=== PATIENT | female | born 1985 | race Caucasian/White ===

== ENCOUNTER 2017-12-27 19:33 | Emergency (ER) | payer OTHER ==
[~2017-12-27] VITALS: Ht 157.5 cm; Wt 70.0 kg
[2017-12-27 21:40] LABS: APPEARANCE,URINE CLEAR (CLEAR); BILIRUBIN,URINE NEGATIVE (NEGATIVE); GLUCOSE, URINE (UA) NEGATIVE (NEGATIVE); KETONES,URINE NEGATIVE (NEGATIVE); LEUKOCYTE ESTERASE ,URINE NEGATIVE (NEGATIVE); NITRATE,URINE NEGATIVE (NEGATIVE); OCCULT BLOOD,URINE NEGATIVE (NEGATIVE); PH,URINE 6.5 (5.0-8.0); PROTEIN,URINE NEGATIVE (NEGATIVE); UROBILINOGEN,URINE 0.2 mg/dL (<=1.0)
[2017-12-27 21:41] LABS: HCG,QUAL RESULT NEGATIVE (NEGATIVE)
[2017-12-27 21:54] LABS: BACTERIA,URINE None Seen /HPF (None Seen); RBC,URINE None Seen /HPF (0-2); SQUAMOUS EPITHELIAL CELL,UR Rare /LPF (None Seen); WBC,URINE 0-2 /HPF (0-5)
[2017-12-27 21:59] LABS: INFLUENZA TYPE A NEGATIVE FOR TYPE A (NEGATIVE); INFLUENZA TYPE B NEGATIVE FOR TYPE B (NEGATIVE)
[2017-12-27] MEDS ORDERED: NAPROXEN 250 MG TABLET PO ONE (23:15)
[2017-12-27] MEDS ORDERED: ACETAMINOPHEN 325 MG TABLET PO ONE (23:15)
[2017-12-27] MEDS ORDERED: METHOCARBAMOL 500 MG TABLET PO ONE (23:15)
[2017-12-27 23:27] VITALS: BP 158/62
== END 2017-12-27 23:56 | disposition home or self-care (01) ==
LOC: EMS 19:36
DX: J40 Bronchitis, not specified as acute or chronic (principal); M79.1 Myalgia; Z88.5 Allergy status to narcotic agent
CPT/HCPCS: 71046; 87804; 99285

== ENCOUNTER 2018-07-07 12:05 | Emergency (ER) | payer OTHER ==
[~2018-07-07] VITALS: Ht 157.5 cm; Wt 68.2 kg
[2018-07-07] MEDS ORDERED: METHOCARBAMOL 500 MG TABLET PO ONE (13:15)
[2018-07-07] MEDS ORDERED: PredniSONE 20 MG TABLET PO ONE (13:15)
[2018-07-07] MEDS ORDERED: KETOROLAC TROMETHAMINE 60 MG/2 ML VIAL IM ONE (13:15)
[2018-07-07 13:45] VITALS: BP 107/60
== END 2018-07-07 13:56 | disposition home or self-care (01) ==
LOC: EMS 12:06
DX: S13.4XXA Sprain of ligaments of cervical spine, initial encounter (principal); S16.1XXA Strain of muscle, fascia and tendon at neck level, initial encounter; S46.811A Strain of other muscles, fascia and tendons at shoulder and upper arm level, right arm, initial encounter; X58.XXXA Exposure to other specified factors, initial encounter; Y93.89 Activity, other specified; Y92.89 Other specified places as the place of occurrence of the external cause; Y99.8 Other external cause status
CPT/HCPCS: 96372; 99283; J1885; J7512

== ENCOUNTER 2018-07-25 12:53 | Emergency (ER) | payer OTHER ==
[~2018-07-25] VITALS: Ht 154.9 cm; Wt 68.2 kg
[2018-07-25] MEDS ORDERED: GABA-318 PO (13:04)
[2018-07-25 13:57] VITALS: BP 115/78
[2018-07-25] MEDS ORDERED: KETOROLAC TROMETHAMINE 60 MG/2 ML VIAL IM ONE (14:00)
[2018-07-25] MEDS ORDERED: METHOCARBAMOL 500 MG TABLET PO ONE (14:00)
== END 2018-07-25 14:39 | disposition home or self-care (01) ==
LOC: EMS 12:55
DX: M54.12 Radiculopathy, cervical region (principal); M54.6 Pain in thoracic spine; M79.601 Pain in right arm; Z88.6 Allergy status to analgesic agent; Z79.899 Other long term (current) drug therapy
CPT/HCPCS: 96372; 99283; J1885

== ENCOUNTER 2018-12-21 02:48 | Emergency (ER) | payer OTHER ==
[~2018-12-21] VITALS: Ht 160 cm; Wt 70.0 kg
[~2018-12-21 02:48] MED LIST: GABA600T10 PO
[2018-12-21] MEDS ORDERED: BENZOCAINE 20%/MENTHOL 56 GM SPRAY CANISTER TP ONE (05:30)
[2018-12-21] MEDS ORDERED: HYDROCODONE/ACETAMINOPHEN 5-325 MG TABLET PO ONE (05:30)
[2018-12-21 05:39] VITALS: BP 122/68
== END 2018-12-21 05:48 | disposition home or self-care (01) ==
LOC: EMS 02:49
DX: S01.112A Laceration without foreign body of left eyelid and periocular area, initial encounter (principal); M50.20 Other cervical disc displacement, unspecified cervical region; Z88.5 Allergy status to narcotic agent; Y04.2XXA Assault by strike against or bumped into by another person, initial encounter; Y93.89 Activity, other specified; Y92.89 Other specified places as the place of occurrence of the external cause; Y99.0 Civilian activity done for income or pay
CPT/HCPCS: 12011; 70450; 70486; 72125

== ENCOUNTER 2020-07-09 00:22 | Emergency (ER) | payer OTHER ==
[~2020-07-09] VITALS: Ht 157.5 cm; Wt 71.8 kg
[2020-07-09] MEDS ORDERED: ESCI-8 PO (00:25)
[2020-07-09] MEDS ORDERED: SODIUM CHLORIDE 0.9% 1,800 ML IV ONE (00:26)
[2020-07-09] MEDS ORDERED: 0.9% SODIUM CHLORIDE 10 ML SYRINGE IVP PRN (00:30)
[2020-07-09] MEDS ORDERED: ACETAMINOPHEN 500 MG TABLET PO ONE (01:15)
[2020-07-09 01:22] LABS: BASOPHILS % (AUTO) 0.4 % (0.0-2.0); EOSINOPHILS % (AUTO) 0.4 % (1.0-6.0); HEMATOCRIT 39.8 % (36-46); HEMOGLOBIN 13.1 g/dL (12.0-16.0); LYMPHOCYTES # (AUTO) 0.7 K/uL (1.0-4.8); MEAN CORPUSCULAR HEMOGLOBIN 27.5 pg (26.0-34.0); MEAN CORPUSCULAR HGB CONC 32.9 G/dL (31.0-37.0); MEAN CORPUSCULAR VOLUME 83 fL (80-100); MONOCYTES # (AUTO) 0.8 K/uL (0.1-1.0); MONOCYTES % (AUTO) 4.8 % (2.0-9.0); NEUTROPHILS # (AUTO) 15.4 K/uL (1.8-7.7); PLATELET COUNT (AUTO) 207 K/uL (150-450); RED BLOOD CELL COUNT(AUTO) 4.78 MIL/uL (4.00-5.20); RED CELL DISTRIBUTION WIDTH 14.4 % (11.5-14.5)
[2020-07-09 01:26] LABS: COVID AG,FIA SOURCE NASOPHARYNGEAL
[2020-07-09 01:27] LABS: ANION GAP 10 mmol/L (8-16); CALCIUM, TOTAL 8.9 mg/dL (8.8-10.5); CARBON DIOXIDE 24 mmol/L (22-29); CHLORIDE 101 mmol/L (98-107); CREATININE 1.18 mg/dL (0.60-1.30); GLOMERULAR FILTR. RATE CALC 52 mL/min (>60); GLUCOSE,RANDOM 103 mg/dL (70-110); POTASSIUM 3.9 mmol/L (3.5-5.1); SODIUM SERUM 135 mmol/L (136-145); UREA NITROGEN, BLOOD 24 mg/dL (7-18)
[2020-07-09 01:31] LABS: NEUTROPHILS % (AUTO) 90.4 % (40.0-70.0)
[2020-07-09 01:33] LABS: D-DIMER 0.47 mg/L FEU (0.00-0.50)
[2020-07-09 01:39] LABS: LACTIC ACID 0.7 mmol/L (0.4-2.0)
[2020-07-09 01:44] LABS: PROTHROMBIN TIME 10.3 SEC (9.4-11.6)
[2020-07-09 01:48] LABS: B-TYPE NATRIURETIC PEPTIDE 40 pg/mL (0-100)
[2020-07-09 01:49] LABS: INFLUENZA TYPE A NEGATIVE FOR TYPE A (NEGATIVE); INFLUENZA TYPE B NEGATIVE FOR TYPE B (NEGATIVE)
[2020-07-09 01:51] LABS: ALANINE AMINOTRANSFERASE 16 U/L (12-78); ALKALINE PHOSPHATASE 55 U/L (46-116); ASPARTATE AMINOTRANSFERASE 11 U/L (15-37); BILIRUBIN,TOTAL 0.9 mg/dL (0.1-1.0); CREATINE KINASE, TOTAL ONLY 78 U/L (26-192); HCG,QUANTITATIVE 1 mIU/mL (0-6); TOTAL PROTEIN, SERUM 6.7 g/dL (6.4-8.2)
[2020-07-09 02:09] LABS: APPEARANCE,URINE CLEAR (CLEAR); BILIRUBIN,URINE NEGATIVE (NEGATIVE); GLUCOSE, URINE (UA) NEGATIVE (NEGATIVE); KETONES,URINE >=80 mg/dL (NEGATIVE); LEUKOCYTE ESTERASE ,URINE NEGATIVE (NEGATIVE); NITRATE,URINE NEGATIVE (NEGATIVE); OCCULT BLOOD,URINE NEGATIVE (NEGATIVE); PROTEIN,URINE NEGATIVE (NEGATIVE); UROBILINOGEN,URINE 0.2 mg/dL (<=1.0)
[2020-07-09 02:40] VITALS: BP 108/68
== END 2020-07-09 02:40 | disposition home or self-care (01) ==
LOC: EMS 00:22
DX: B34.9 Viral infection, unspecified (principal); J02.9 Acute pharyngitis, unspecified; R06.02 Shortness of breath; Z20.828 Contact with and (suspected) exposure to other viral communicable diseases; Z88.5 Allergy status to narcotic agent
CPT/HCPCS: 36415; 71045; 80053; 81003; 82550; 83605; 83880; 84145; 84484; 84702; 85025; 85379; 85610; 87040; 87426; 87430; 87804; 93005; 99285; J7030; U0003

== ENCOUNTER 2020-07-10 00:14 | Emergency (ER) | payer OTHER ==
[~2020-07-10] VITALS: Ht 157.5 cm; Wt 66.8 kg
[~2020-07-10 00:14] MED LIST changes: +ESCI-8 PO; -GABA600T10 PO
[2020-07-10] MEDS ORDERED: LIDOCAINE 2% VISCOUS 15 ML SOLUTION UDCUP PO ONE (00:30)
[2020-07-10] MEDS ORDERED: ONDANSETRON HCL 4 MG/2 ML VIAL IVP ONE ×2 (00:30→04:15)
[2020-07-10] MEDS ORDERED: KETOROLAC TROMETHAMINE 30 MG/ML VIAL IVP ONE (00:30)
[2020-07-10] MEDS ORDERED: CefTRIAXone 1 GM/DEXTROSE 50 ML IV ONE (00:45)
[2020-07-10 01:00] LABS: BASOPHILS % (AUTO) 0.5 % (0.0-2.0); EOSINOPHILS % (AUTO) 0.7 % (1.0-6.0); HEMATOCRIT 40.5 % (36-46); HEMOGLOBIN 13.4 g/dL (12.0-16.0); LYMPHOCYTES # (AUTO) 1.8 K/uL (1.0-4.8); LYMPHOCYTES % (AUTO) 9.7 % (22.0-44.0); MEAN CORPUSCULAR HEMOGLOBIN 28.1 pg (26.0-34.0); MEAN CORPUSCULAR HGB CONC 33.1 G/dL (31.0-37.0); MEAN CORPUSCULAR VOLUME 85 fL (80-100); MONOCYTES # (AUTO) 1.3 K/uL (0.1-1.0); MONOCYTES % (AUTO) 6.9 % (2.0-9.0); NEUTROPHILS # (AUTO) 15.2 K/uL (1.8-7.7); NEUTROPHILS % (AUTO) 82.2 % (40.0-70.0); PLATELET COUNT (AUTO) 216 K/uL (150-450); RED BLOOD CELL COUNT(AUTO) 4.76 MIL/uL (4.00-5.20); RED CELL DISTRIBUTION WIDTH 14.5 % (11.5-14.5)
[2020-07-10 01:06] LABS: ANION GAP 12 mmol/L (8-16); CALCIUM, TOTAL 8.8 mg/dL (8.8-10.5); CARBON DIOXIDE 25 mmol/L (22-29); CHLORIDE 105 mmol/L (98-107); CREATININE 0.97 mg/dL (0.60-1.30); GLOMERULAR FILTR. RATE CALC > 60 mL/min (>60); GLUCOSE,RANDOM 95 mg/dL (70-110); POTASSIUM 3.3 mmol/L (3.5-5.1); SODIUM SERUM 142 mmol/L (136-145); UREA NITROGEN, BLOOD 11 mg/dL (7-18)
[2020-07-10] MEDS ORDERED: IOVERSOL 350 MG/ML 100 ML VIAL ONE (01:23)
[2020-07-10] MEDS ORDERED: SODIUM CHLORIDE 0.9% 100 ML ONE (01:23)
[2020-07-10] MEDS ORDERED: LIDOCAINE 1% 10 ML VIAL INJ ONE (03:30)
[2020-07-10] MEDS ORDERED: HYDROCODONE/ACETAMINOPHEN 5-325 MG TABLET PO ONE (04:15)
[2020-07-10 06:04] VITALS: BP 108/64
== END 2020-07-10 06:50 | disposition home or self-care (01) ==
LOC: EMS 00:14
DX: J36 Peritonsillar abscess (principal); M79.10 Myalgia, unspecified site; R50.9 Fever, unspecified; Z88.5 Allergy status to narcotic agent
CPT/HCPCS: 36415; 42700; 70491; 80048; 85025; 87081; 96365; 96375; 96376; 99285; J0696; J1885; J2405; J3490; J7050; Q9967; 10160